=== PATIENT | female | born 1955 | race Caucasian/White ===

== ENCOUNTER → 2019-08-15 | Outpatient (CLI) | payer OTHER ==
[~2019-08-15] MED LIST: CALCIUM CARBO1250 MG PO; EFFEXOR XR37.5 MG PO; LEVAQUIN 500 M500 MG PO; LEVOTHYROXINE 0.1 MG PO; MIRALAX255 GM PO; NOLVADEX10 MG PO; NOLVADEX20 MG PO; PROBIOTIC1 EAC1 PO; SYNTHROID100 MCG PO; SYNTHROID75 MCG PO; VITAMIN D1000 UNI1 PO; ZOLOFT25 MG PO
== END ==
LOC: CAT 08-01 11:09
DX: Z13.6 Encounter for screening for cardiovascular disorders (principal); I25.10 Atherosclerotic heart disease of native coronary artery without angina pectoris; E78.00 Pure hypercholesterolemia, unspecified